=== PATIENT | female | born 1980 | race Caucasian/White ===

== ENCOUNTER 2016-12-05 23:37 | Emergency (ER) | payer OTHER ==
[~2016-12-05 23:37] MED LIST: ADDERALL XR 2525 MG PO; ADVAIR; ADVAIR 100/501 DISK IH; ADVAIR 250/501 DISK IH; ADVAIR HFA120 INHALA IH; ALPRAZOLAM1 MG PO; ALPRAZOLAM2 MG PO; AMBIEN CR12.5 MG PO; AMBIEN10 MG PO; AMITRIPTYLINE HCL; APRI1 EACH PO; ATARAX,VISTARIL25 MG PO; AZITHROMYCIN500 M1 PO; Ambien PO; B-COMPLEX 100 I30 ML IM; CALCIUM CITRAT200 MG PO; CALCIUM CITRATE PO; CHANTIX; CHANTIX1 MG PO; CLARITIN-D 21 TABLET PO; CLONIDINE HCL0.1 MG PO; CUBICIN500 MG/10 IV; CYANOCOBALAM1000 MCG PO; CYCLOBENZAPRINE10 MG PO; CYMBALTA60 MG PO; Cipro PO; Combivent IH; DELTASONE20 MG PO; DICLOFENAC SODI75 MG; DILAUDID4 MG PO; DILAUDID8 MG PO; DOLOPHINE HCL5 MG PO; DOXYCYCLINE HY100 MG PO; DURAGESIC75 MCG TD; FENTANYL1 EAC2 TD; FLAGYL500 MG PO; FLEXERIL10 MG PO; FLONASE16 G1 BOTH NARES; FOLIC ACID1 MG PO; Flagyl PO; IMITREX4 MG/0.5 M SC; IMITREX6 MG/0.5 M SC; IRON160 M1 PO; IRON45 MG PO; KEFLEX500 MG PO; Keflex PO; LOVENOX40 MG/0.4 SC; LYRICA150 MG PO; LYRICA75 MG PO; Levaquin PO; MACROBID100 MG PO; METHADONE 22 MG/1 ML PO; METHADONE H5 MG/5 ML PO; MOTRIN600 MG PO; MULTIVITAMIN1 EAC2 PO; NICODERM CQ1 EACH TD; NOHOMEMEDS; NORCO 5/3251 TABLET PO; NYQUIL D COLD295 ML PO; OXYCODONE HCL10 MG PO; OXYCODONE-ACET1 EACH PO; OXYCODONE-APAP1 EACH; PERCOCET 10/1 TABLET PO; PERCOCET 5/31 TABLET PO; PHENERGAN-CODE120 ML PO; PHENTERMINE H37.5 MG PO; PREDNISONE PO; PREDNISONE10 MG PO; PREDNISONE50 MG PO; PROAIR HFA8.5 GM IH; PROMETHAZINE W/CODEI PO; PROTONIX20 MG PO; PROTONIX40 MG PO; PROVENTIL,200 INHALA IH; PROVENTIL17 GM IH; PYRIDIUM100 MG PO; Protonix PO; Proventil,Ventolin H IH; ROBITUSSIN AC,T10 ML PO; Reglan PO; SEROQUEL XR150 MG PO; SEROQUEL XR50 MG PO; SERTRALINE HCL100 MG PO; SINGUL; SUMATRIPTA6 MG/0.5 M SC; TIZANIDINE HCL4 MG PO; TIZANIDINE HCL6 MG PO; TRAZODONE HCL50 MG PO; TYLENOL EXTRA500 MG PO; Theragran PO; VITAMIN B-1100 MG PO; VITAMIN B12; Vancocin Oral Soluti PO; ZITHROMAX TRI-500 MG PO; ZITHROMAX250 MG PO; ZOFRAN ODT4 MG PO; ZOFRAN4 MG PO; ZOFRAN8 MG PO; ZOLOFT100 MG PO
== END 2016-12-06 00:30 | disposition left against medical advice (07) ==
LOC: EME 23:37
DX: R68.89 Other general symptoms and signs (principal); Z53.21 Procedure and treatment not carried out due to patient leaving prior to being seen by health care provider

== ENCOUNTER 2017-02-11 17:41 | Emergency (ER) | payer OTHER ==
[~2017-02-11] VITALS: Ht 162.6 cm; Wt 104.9 kg
[2017-02-11 20:18] LABS: HEMATOCRIT 38.6 % (36.0-46.0); MCH 31.6 PG (29.0-34.0); MCHC 33.9 G/DL (30.0-36.0); MCV 93.2 FL (83-99); MEAN PLAT.VOLUME 9.1 uM^3 (9.5-12.4); PLATELET COUNT 216 K/uL (156-360); RBC DIS.WIDTH-CV 15.2 % (11.8-14.6); RBC DIS.WIDTH-SD 51.8 % (39-53); RED BLOOD COUNT 4.14 M/uL (3.80-5.20); WHITE BLOOD COUNT 6.1 K/uL (4.1-10.2)
[2017-02-11 20:28] LABS: CHLORIDE 108 mEq/L (99-109); POTASSIUM 3.5 mEq/L (3.7-5.4); SODIUM 143 mEq/L (136-147)
[2017-02-11 20:30] LABS: GLUCOSE 103 mg/dL (70-99)
[2017-02-11 20:32] LABS: ANION GAP 18 MEQ/L (2-14); TOTAL BILIRUBIN 0.3 mg/dL (0.0-1.0)
[2017-02-11 20:34] LABS: ALKALINE PHOSPHATASE 114 IU/L (3-129); GFR ESTIMATE (CALCULATED) > 59 mL/min/
[2017-02-11 20:35] LABS: UREA NITROGEN (BUN) 10 mg/dL (9-23)
[2017-02-11 20:43] LABS: QUANTITATIVE HCG < 4.0 MIU/ML
[2017-02-11 23:03] LABS: ADD MIUA? YES; BILIRUBIN NEGATIVE; BLOOD SMALL; COLOR AMBER ((YELLOW)); GLUCOSE (STRIP) NEGATIVE; KETONES NEGATIVE; LEUKOCYTES NEGATIVE; NITRITE POSITIVE; PROTEIN (STRIP) 30; SPECIFIC GRAVITY 1.025 (1.000-1.030); UROBILINOGEN 0.2 MG/DL (0.2-1.0)
[2017-02-11 23:35] LABS: BACTERIA 3+ /HPF; CALCIUM OXALATE CRYSTALS 2+ /HPF; CASTS NONE SEEN /LPF; CRYSTALS PRESENT; EPITHELIAL CELLS 3+ /HPF; MUCUS RARE /LPF; UCUL ADDED? YES; WHITE BLOOD CELLS 0-5 /HPF (0-5)
[2017-02-11] MEDS ORDERED: NORCO 5/3251 TABLET PO (23:38)
[2017-02-12] MEDS ORDERED: MACROBID100 MG PO (01:34)
[2017-02-12 01:57] VITALS: BP 118/85
== END 2017-02-12 01:59 | disposition home or self-care (01) ==
LOC: EME 17:41
PROVIDERS: Emergency Medicine
DX: S30.1XXA Contusion of abdominal wall, initial encounter (principal); Y04.8XXA Assault by other bodily force, initial encounter; M54.2 Cervicalgia; M54.9 Dorsalgia, unspecified; R51 Headache; N39.0 Urinary tract infection, site not specified; F41.1 Generalized anxiety disorder; F43.10 Post-traumatic stress disorder, unspecified; F17.200 Nicotine dependence, unspecified, uncomplicated; M79.7 Fibromyalgia; J44.9 Chronic obstructive pulmonary disease, unspecified; K21.9 Gastro-esophageal reflux disease without esophagitis; Z90.49 Acquired absence of other specified parts of digestive tract; Z90.710 Acquired absence of both cervix and uterus; Z98.84 Bariatric surgery status
CPT/HCPCS: 70150; 70498; 71010; 74177; 80053; 81003; 84702; 85027; 87077; 87086; 87186; 90839; 99281; 99285; J1200; J2270; J2405

== ENCOUNTER 2017-05-16 14:16 | Emergency (ER) | payer OTHER ==
[~2017-05-16] VITALS: Ht 157.5 cm; Wt 110.6 kg
[~2017-05-16 14:16] MED LIST changes: +BACTRIM,SEPT1 TABLET PO
[2017-05-16 14:49] LABS: HEMATOCRIT 38.4 % (36.0-46.0); MCHC 34.1 G/DL (30.0-36.0); MCV 96.7 FL (83-99); MEAN PLAT.VOLUME 9.4 uM^3 (9.5-12.4); PLATELET COUNT 186 K/uL (156-360); RBC DIS.WIDTH-CV 13.8 % (11.8-14.6); RBC DIS.WIDTH-SD 49.2 % (39-53); RED BLOOD COUNT 3.97 M/uL (3.80-5.20); WHITE BLOOD COUNT 5.3 K/uL (4.1-10.2)
[2017-05-16 14:58] LABS: CHLORIDE 104 mEq/L (99-109); POTASSIUM 3.9 mEq/L (3.7-5.4); SODIUM 139 mEq/L (136-147)
[2017-05-16 15:00] LABS: GLUCOSE 97 mg/dL (70-99)
[2017-05-16 15:02] LABS: ANION GAP 11 MEQ/L (2-14); TOTAL BILIRUBIN 1.1 mg/dL (0.0-1.0)
[2017-05-16 15:04] LABS: ALKALINE PHOSPHATASE 110 IU/L (3-129); GFR ESTIMATE (CALCULATED) > 59 mL/min/
[2017-05-16 15:05] LABS: UREA NITROGEN (BUN) 11 mg/dL (9-23)
[2017-05-16 19:00] LABS: ADD MIUA? NO; BILIRUBIN NEGATIVE; BLOOD NEGATIVE; COLOR YELLOW ((YELLOW)); GLUCOSE (STRIP) NEGATIVE; KETONES NEGATIVE; LEUKOCYTES NEGATIVE; NITRITE NEGATIVE; PROTEIN (STRIP) NEGATIVE; SPECIFIC GRAVITY 1.025 (1.000-1.030); UCUL ADDED? NO
[2017-05-16] MEDS ORDERED: REGLAN10 MG PO (19:44)
[2017-05-16] MEDS ORDERED: PHENERGAN25 MG PR (19:44)
[2017-05-16] MEDS ORDERED: CARAFATE1 GM PO (19:44)
[2017-05-16] MEDS ORDERED: ATARAX,VISTARIL50 MG PO (19:44)
[2017-05-16 20:10] VITALS: BP 109/78
== END 2017-05-16 20:10 | disposition home or self-care (01) ==
LOC: EME 14:16
DX: K29.70 Gastritis, unspecified, without bleeding (principal); R10.12 Left upper quadrant pain; F41.9 Anxiety disorder, unspecified; J02.9 Acute pharyngitis, unspecified; Z98.84 Bariatric surgery status; K21.9 Gastro-esophageal reflux disease without esophagitis; F17.200 Nicotine dependence, unspecified, uncomplicated; J44.9 Chronic obstructive pulmonary disease, unspecified; M79.7 Fibromyalgia; F32.9 Major depressive disorder, single episode, unspecified; Z88.0 Allergy status to penicillin; Z88.5 Allergy status to narcotic agent; Z91.040 Latex allergy status; Z88.1 Allergy status to other antibiotic agents
CPT/HCPCS: 74020; 80053; 81003; 85027; 87651 90; 99281; 99285; Q0177

== ENCOUNTER 2017-07-15 07:56 | Emergency (ER) | payer OTHER ==
[~2017-07-15] VITALS: Ht 162.6 cm; Wt 113.2 kg
[~2017-07-15 07:56] MED LIST changes: +ATARAX,VISTARIL50 MG PO; +CARAFATE1 GM PO; +PHENERGAN25 MG PR; +REGLAN10 MG PO
[2017-07-15 10:49] LABS: HEMATOCRIT 39.4 % (36.0-46.0); HEMOGLOBIN 13.3 G/DL (11.9-15.5); MCH 31.5 PG (29.0-34.0); MCHC 33.8 G/DL (30.0-36.0); MCV 93.4 FL (83-99); PLATELET COUNT 183 K/uL (156-360); RBC DIS.WIDTH-CV 13.5 % (11.8-14.6); RBC DIS.WIDTH-SD 45.3 % (39-53); RED BLOOD COUNT 4.22 M/uL (3.80-5.20); WHITE BLOOD COUNT 5.2 K/uL (4.1-10.2)
[2017-07-15 11:12] LABS: CHLORIDE 106 MEQ/L (99-109); POTASSIUM 5.2 MEQ/L (3.7-5.4); SODIUM 142 MEQ/L (136-147)
[2017-07-15 11:18] LABS: CREATININE 0.7 MG/DL (0.6-1.3); GFR ESTIMATE (CALCULATED) > 59 mL/min/; GLUCOSE 90 mg/dL (70-99); SERUM ETHYL ALCOHOL 146 mg/dL; UREA NITROGEN (BUN) 12 mg/dL (9-23)
[2017-07-15] MEDS ORDERED: IMITREX25 MG PO (12:38)
[2017-07-15] MEDS ORDERED: REGLAN10 MG PO (12:38)
[2017-07-15 13:09] VITALS: BP 126/90
== END 2017-07-15 13:10 | disposition home or self-care (01) ==
LOC: EME 07:56
PROVIDERS: Emergency Medicine
DX: F10.129 Alcohol abuse with intoxication, unspecified (principal); G43.909 Migraine, unspecified, not intractable, without status migrainosus; I45.10 Unspecified right bundle-branch block; K21.9 Gastro-esophageal reflux disease without esophagitis; J44.9 Chronic obstructive pulmonary disease, unspecified; M79.7 Fibromyalgia; E66.01 Morbid (severe) obesity due to excess calories; F41.9 Anxiety disorder, unspecified; F32.9 Major depressive disorder, single episode, unspecified; F17.200 Nicotine dependence, unspecified, uncomplicated; Y90.6 Blood alcohol level of 120-199 mg/100 ml; Z90.49 Acquired absence of other specified parts of digestive tract; Z90.89 Acquired absence of other organs; Z98.84 Bariatric surgery status; Z90.710 Acquired absence of both cervix and uterus; Z88.0 Allergy status to penicillin; Z88.5 Allergy status to narcotic agent
CPT/HCPCS: 80048; 85027; 93005; G0480; J1630; J3030

== ENCOUNTER 2017-10-22 17:23 | Emergency (ER) | payer OTHER ==
[~2017-10-22] VITALS: Ht 162.6 cm; Wt 113.7 kg
[~2017-10-22 17:23] MED LIST changes: +IMITREX25 MG PO
[2017-10-22 20:12] VITALS: BP 125/79
== END 2017-10-22 20:18 | disposition home or self-care (01) ==
LOC: EME 17:23
DX: T40.601A Poisoning by unspecified narcotics, accidental (unintentional), initial encounter (principal); R41.82 Altered mental status, unspecified; R11.0 Nausea; F10.99 Alcohol use, unspecified with unspecified alcohol-induced disorder; J44.9 Chronic obstructive pulmonary disease, unspecified; Z90.49 Acquired absence of other specified parts of digestive tract; Z90.710 Acquired absence of both cervix and uterus; Z98.84 Bariatric surgery status; E66.01 Morbid (severe) obesity due to excess calories; Z68.41 Body mass index [BMI] 40.0-44.9, adult; F17.200 Nicotine dependence, unspecified, uncomplicated
CPT/HCPCS: 99281; 99285

== ENCOUNTER 2017-12-14 11:56 | Emergency (ER) | payer OTHER ==
[~2017-12-14] VITALS: Ht 162.6 cm; Wt 118.8 kg
[2017-12-14] MEDS ORDERED: LIDODERM 5% P1 PATCH TD (14:48)
[2017-12-14] MEDS ORDERED: MOTRIN800 MG PO (14:48)
[2017-12-14 14:57] VITALS: BP 116/98
== END 2017-12-14 15:16 | disposition home or self-care (01) ==
LOC: EME 11:56
DX: M54.42 Lumbago with sciatica, left side (principal); G89.29 Other chronic pain; M62.838 Other muscle spasm; L23.7 Allergic contact dermatitis due to plants, except food; F32.9 Major depressive disorder, single episode, unspecified; J43.9 Emphysema, unspecified; M79.7 Fibromyalgia; K21.9 Gastro-esophageal reflux disease without esophagitis; F41.9 Anxiety disorder, unspecified; Z98.84 Bariatric surgery status; Z88.5 Allergy status to narcotic agent; Z88.0 Allergy status to penicillin; F17.200 Nicotine dependence, unspecified, uncomplicated; Z91.040 Latex allergy status
CPT/HCPCS: 72100; 99281; 99284; J1100; J1885